=== PATIENT | female | born 1985 | race Caucasian/White ===

== ENCOUNTER 2023-11-28 00:56 | Emergency (ER) | payer OTHER ==
[2023-11-28 01:03] VITALS: BP 123/80; PULSE 74; RESP 16; TEMP 98.6; BMI 29.9
[2023-11-28 01:52] LABS: HEMATOCRIT 32.7 % (32.4-45.2); HEMOGLOBIN 11.1 GM/dL (10.7-15.3); MCH 29.3 pg (25.7-33.7); MCHC 33.9 g/dl (32.0-36.0); MEAN CELL VOLUME 86.3 fl (80-96); MEAN PLT VOLUME 8.8 fl (7.5-11.1); PLATELET COUNT 280 10^3/uL (134-434); RBC 3.79 M/mm3 (3.60-5.2); RDW 14.5 % (11.6-15.6); WHITE BLOOD COUNT 8.1 K/mm3 (4.0-10.0)
[2023-11-28 02:43] LABS: ALBUMIN 3.4 g/dl (3.4-5.0); ALK PHOS 58 U/L (45-117); ANION GAP 4 mmol/L (4-13); BILIRUBIN,TOTAL 0.2 mg/dL (0.2-1); BLOOD UREA NITROGEN 12.1 mg/dL (7-18); CALCIUM 8.3 mg/dL (8.5-10.1); CHLORIDE 106 mmol/L (98-107); CO2 30 mmol/L (21-32); CREATININE 0.5 mg/dL (0.55-1.3); GLUCOSE,RANDOM 95 mg/dL (74-106); POTASSIUM 3.9 mmol/L (3.5-5.1); SGOT/AST 17 U/L (15-37); SGPT/ALT 23 U/L (13-61); SODIUM 140 mmol/L (136-145); TOT PROT 6.7 g/dl (6.4-8.2)
== END 2023-11-28 02:49 | disposition home or self-care (01) ==
LOC: FER 00:56
DX: R07.89 Other chest pain (principal)
CPT/HCPCS: 36415; 80053; 82550; 84484; 85027; 93005; 99284-25